=== PATIENT | male | born 2005 | race Caucasian/White ===

== ENCOUNTER 2025-04-27 13:33 | Emergency (ER) | payer OTHER ==
[~2025-04-27] VITALS: Ht 188 cm; Wt 83.1 kg
[~2025-04-27 13:33] MED LIST: ZOFRAN4 MG PO
[2025-04-27 15:50] VITALS: BP 130/63
== END 2025-04-27 15:50 | disposition home or self-care (01) ==
LOC: ED 13:33
DX: S63.502A Unspecified sprain of left wrist, initial encounter (principal); V00.131A Fall from skateboard, initial encounter; Y93.51 Activity, roller skating (inline) and skateboarding; Z79.899 Other long term (current) drug therapy
CPT/HCPCS: 73110; 99283